=== PATIENT | female | born 1975 | race Asian ===

== ENCOUNTER 2021-08-03 21:59 | Emergency (ER) | payer OTHER ==
[~2021-08-03] VITALS: Ht 160 cm; Wt 70.0 kg
--- NOTE | 2021-08-03 22:28 | PHYS DOC ---
Past History Past Medical History: Hypertension Past Surgical History: Tonsillectomy, Other Additional Past Surgical Histo: BUNIONECTOMY Smoking: Quit Greater Than 1 Year Additional Smoking Information: Reports a 6-year history of approximately 1 pack/week tobacco when she was younger quit multiple years ago Alcohol Use: Occasionally Additional Alcohol Information: Social EtOH Drug Use: None Social History Narrative: Not currently working, lives at home General Adult EDM: Chief Complaint: MULTIPLE COMPLAINTS HPI: HPI: Patient is a 46-year-old female who presents to the emergency department via triage reporting a sudden onset of headache, chills, rigors, generalized malaise, and generalized weakness since 1500 hrs. today. Patient reports associated nausea as well as diffuse myalgias, however denies chest pain, palpitations, loss of taste of smell or taste. Patient reports taking 800 mg of Motrin at home prior to arrival. Patient reports fever at home, on arrival to triage she has a fever of 100.4 F. Patient has no known sick contacts, reports 2 doses of Moderna for COVID vaccine- last dose in October. She denies getting her flu shot yet. Her last menstrual period was reported to be last week, she is not currently on any contraceptives. Review of Systems: Review of Systems: Constitutional: Reports fever, chills, and rigors Eyes: Denies redness or eye pain HENT: Denies nasal congestion or sore throat Respiratory: Denies wheezing, respiratory distress Cardiovascular: Denies chest pain or palpitations GI: Denies abdominal pain, vomiting; reports nausea : Denies dysuria or hematuria Musculoskeletal: Denies back pain or joint pain Integument: Denies rash or skin lesions Neurologic: Reports headache; denies focal weakness or sensory changes Complete systems were reviewed and found to be within normal limits, except as documented in this note. Family History: Family History: Noncontributory Allergies: Allergies: Allergies Coded Allergies Type Severity Reaction Last Updated Verified No Known Drug Allergies 08/03/21 No Physical Exam: PE: Constitutional: Well developed, well nourished, mild distress, non-toxic HENT: Normocephalic, atraumatit Eyes: PERRL, conjunctiva normal, no discharge Neck: Normal range of motion, no tenderness, supple, no JVD, trachea midline Lungs & Thorax: No respiratory distress, normal chest wall excursion bilaterally, lung sounds clear to auscultation bilaterally, +2 peripheral pulses bilaterally, tachycardic, regular rhythm, Abdomen: Soft, no tenderness, not distended, no rigidity, no guarding, no rebound tenderness Skin: Warm, dry, no erythema, no rash Back: No tenderness, no CVA tenderness Extremities: No tenderness, ROM intact, no edema Neurologic: Alert and oriented X 3, normal motor function, normal sensory function, no focal deficits noted Psychologic: Affect normal, judgment normal Current Patient Data: Vital Signs: Vital Signs Date Time Temp Pulse Resp B/P (MAP) Pulse Ox O2 Delivery O2 Flow Rate FiO2 08/03/21 22:13 100.4 130 20 124/81 (95) 99 Room Air EKG: EKG: EKG taken at 2240 hours sinus tachycardia rate of 112 bpm. NH interval 148 ms, QRS interval 76 ms, QT/QTc 316/433 ms. T wave inversions appreciated in leads I, II, V3, V4, V5. Subtle ST segment depressions appreciated in leads V3, V4. No ectopy appreciated on this EKG. Radiology/Procedures: Radiology/Procedures: PROCEDURE: CHEST AP ONLY INDICATION: Reason: fever / Spl. Instructions: / History: COMPARISON: None. FINDINGS: Single view of chest obtained. Cardiac silhouette is unremarkable. Mild hazy opacity at the lung bases. No gross osseous destructive lesion. IMPRESSION: * Mild hazy opacity at the lung bases which could be from atelectasis with early infiltrate also in differential. Electronically signed by: Brian Mistry MD (08/04/2021 12:40 AM) DESKTOP- [id number] Heart Score: C/O Chest Pain: N/A Course & Med Decision Making: Course & Med Decision Making Pertinent Labs and Imaging studies reviewed. (See chart for details) 46-year-old female presents to the emergency department through triage with a chief complaint of sudden onset generalized malaise, fatigue, chills, rigors, and diffuse myalgias. Patient has no known sick contacts, she was vaccinated against Covid via 2 shots of Modernalast dose in October, she has not had a flu vaccine this year. Plan for Covid and flu swabs, EKG, chest x-ray, IV access, blood work, continuous cardiac monitoring, and urinalysis. Labs obtained and posted to chart. Rapid influenza and Covid negative. Chest x-ray without acute process. Symptomatic treatment provided. Patient stable for discharge with outpatient follow-up with PCP. Discussed findings and plan with patient, who acknowledges understanding and agreement. COVID-19 CRITERIA: The patient was evaluated during the global COVID-19 pandemic, and that diagnosis was suspected/considered upon their initial presentation. Their evaluation, treatment and testing was consistent with current guidelines for patients who present with complaints or symptoms that may be related to COVID-19. Sophia Disclaimer: Sophia Disclaimer: This electronic medical record was generated, in whole or in part, using a voice recognition dictation system. Departure Departure: Impression: Primary Impression: Viral syndrome Additional Impression: Fever Qualified Codes: R50.9 - Fever, unspecified Disposition: HOME / SELF CARE / HOMELESS Condition: STABLE Referrals: PCP,UNKNOWN (PCP) Patient Instructions: Fever, Adult, [id number], Viral Syndrome Additional Instructions: You have been tested for or diagnosed with COVID-19. It is an infection caused by a new type of coronavirus. COVID-19 will cause cold-like or mild flu symptoms in most. It can cause more severe symptoms like problems breathing in some. There is no treatment for COVID-19. The body will clear the infection over time. Self-care will help to ease discomfort. Steps to Take: Self-Care Rest as needed. Healthy habits may help you feel better. Steps include: Choose healthy foods including fruits and vegetables. Drink water throughout the day. Get plenty of sleep each night. If you smoke, try to quit. It may ease breathing. Avoid alcohol. Keep Others Healthy The virus can spread to others. Droplets are released every time you sneeze or cough. The droplets can get into the mouth, nose, or eyes of people near you and lead to infection. To lower the chances of spreading COVID-19 to others: Stay at home until your doctor has said it is safe to leave. If you tested positive this will mean staying isolated until both of the following are true: At least 7 days have passed since the start of illness. You are free of fever for at least 72 hours without the use of medicine. During this time: - Avoid public areas, events, or transportation. Do not return to work or school until your doctor has said it is safe to do so. - Call ahead if you need to go to a medical center. Let them know you may have COVID-19. It will help them guide you where to go. They may also ask you to wear a facemask when you come to the office. - If you call for emergency medical services, let them know you may have COVID- 19. While at home: - Try to avoid close contact with others. Stay about 6 feet away. - If possible, spend most of your time in a separate room from others. - Use a face mask if you will be in close contact with others such as sharing a room or vehicle. - Have someone wipe down common surfaces in the home. Use household financial reporting specialist every day on areas like doorknobs, counters, or sinks. - Cough or sneeze into a tissue. Throw the tissue away right after use. If a tissue is not available, cough or sneeze into your elbow. - Wash your hands often. Wash them after sneezing or coughing. Use soap and water and wash for at least 20 seconds. Alcohol based hand fur cleaner can be used if soap and water is not available. - Do not prepare food for others. Avoid sharing personal items like forks, spoons, or toothbrushes. - Avoid close contact with pets while you are sick. There is no evidence of the virus passing to pets. This is a safety step until more is known about this virus. Isolation can be frustrating. Social interaction can help. Keep in touch with friends and family through phone and tech options. You can still interact with others in your home, just keep a safe distance of about 6 feet. Follow-up: Your doctors office will check in with you to see if there are any changes in your health. You may be asked to keep track of symptoms to share with them. They will also let you know when you are clear to be in public again. Problems to Look Out For: Contact your doctor if your recovery is not going as you expect. Get emergency care if you have problems such as: - Trouble breathing - Nonstop chest pain or pressure - Changes in awareness, confusion, or problems waking - Lips or face have bluish color - Worsening of symptoms If you think you have an emergency, call for emergency medical services right away. As taken from [facility] COVID-19 Assessment COVID-19 Patient Risks: Age 65 or older: No Sign of co-morbidity: No Exp to person + for COVID: No Exp to PUI: No Travel from affected area: No Lower respiratory symptoms: Yes Fever: Yes Other: Yes PPE Use: Full PPE with N95 mask or PAPR: Yes NEVIN AYON DO Aug 03, 2021 22:28
[2021-08-03] MEDS ORDERED: ACETAMINOPHEN 500 MG TABLET PO ONE (23:00)
[2021-08-03] MEDS ORDERED: IV NORMAL SALINE 1,000ML 1,000 ML IV ONE (23:00)
[2021-08-03 23:10] VITALS: BP 120/71
--- NOTE | 2021-08-03 23:29 | EKG ---
[address] [id number] Test Date: 2021-08-03 Test Time: 22:40:42 Pat Name: MILTON BACA Department: Room: Gender: F Claims Specialist: : [id number] Requested By: NEVIN AYON Order Number: [id number] Reading MD: Kurt Og Measurements Intervals Marvell Rate: 112 P: 46 NC: 148 QRS: 71 QRSD: 76 T: 72 QT: 316 QTc: 433 Interpretive Statements SINUS TACHYCARDIA T ABNORMALITY IN ANTERIOR LEADS ABNORMAL ECG RI6.02 No previous ECG available for comparison Electronically Signed On 08-04-2021 12:32:44 [employer] by Kurt Og
[2021-08-03 23:55] LABS: BASO % 0 % (0-3); EOS % 0 % (0-3); HEMATOCRIT 40.6 % (36.0-47.0); HEMOGLOBIN 13.9 g/dL (12.0-15.5); LYMPH # 0.6 x10^3/uL (1.0-4.8); LYMPH % 4 % (24-48); MEAN CORPUSCULAR HEMOGLOBIN 30 pg (25-35); MEAN CORPUSCULAR HGB CONC 34 g/dL (31-37); MEAN CORPUSCULAR VOLUME 87 fL (79-100); MONO # 0.5 x10^3/uL (0.0-1.1); MONO % 4 % (0-9); NEUT # 12.6 x10^3uL (1.8-7.7); NEUT % 92 % (31-73); PLATELET COUNT 251 x10^3/uL (140-400); RED BLOOD COUNT 4.66 x10^6/uL (3.50-5.40); RED CELL DISTRIBUTION WIDTH 12.4 % (11.5-14.5); WHITE BLOOD COUNT 13.7 x10^3/uL (4.0-11.0)
[2021-08-04 00:15] LABS: ANION GAP 12 (6-14); BLOOD UREA NITROGEN 13 mg/dL (7-20); BUN/CREATININE RATIO 16 (6-20); CALCIUM 8.7 mg/dL (8.5-10.1); CARBON DIOXIDE 28 mmol/L (21-32); CHLORIDE 97 mmol/L (98-107); CREATININE 0.8 mg/dL (0.6-1.0); GFR 77.6; GLUCOSE 124 mg/dL (70-99); POTASSIUM 3.6 mmol/L (3.5-5.1); SODIUM 137 mmol/L (136-145)
[2021-08-04 00:29] LABS: ALBUMIN/GLOBULIN RATIO 1.3 (1.0-1.7); ALK PHOS 53 U/L (46-116); ALT (SGPT) 44 U/L (14-59); AST (SGOT) 29 U/L (15-37); MAGNESIUM 2.2 mg/dL (1.8-2.4); TOTAL BILIRUBIN 0.7 mg/dL (0.2-1.0); TOTAL PROTEIN 7.1 g/dL (6.4-8.2)
[2021-08-04 00:29] LABS: INFLUENZA A PATIENT NEGATIVE (NEGATIVE); INFLUENZA B PATIENT NEGATIVE (NEGATIVE)
--- NOTE | 2021-08-04 00:42 | RAD ---
INDICATION: Reason: fever / Spl. Instructions: / History: COMPARISON: None. FINDINGS: Single view of chest obtained. Cardiac silhouette is unremarkable. Mild hazy opacity at the lung bases. No gross osseous destructive lesion. IMPRESSION: * Mild hazy opacity at the lung bases which could be from atelectasis with early infiltrate also in differential. Electronically signed by: Brian Mistry MD (08/04/2021 12:40 AM) [id number]
[2021-08-04 01:56] LABS: BACTERIA,URINE 0 /HPF (0-FEW); BILIRUBIN,URINE NEG (NEG); CLARITY,URINE CLEAR; COLOR,URINE YELLOW; GLUCOSE,URINE NEG (NEG); NITRITE,URINE NEG (NEG); RBC,URINE 0 /HPF (0-2); SQUAMOUS EPITHELIAL CELL,UR FEW /LPF; UROBILINOGEN,URINE 0.2 mg/dL (0.2 mg/dL); WBC,URINE 0 /HPF (0-4)
== END 2021-08-04 02:21 | disposition home or self-care (01) ==
LOC: ER 21:59
DX: B34.9 Viral infection, unspecified (principal); I10 Essential (primary) hypertension; Z87.891 Personal history of nicotine dependence; Z20.822 Contact with and (suspected) exposure to COVID-19
CPT/HCPCS: 71045; 80053; 81001; 81025; 82553; 83605; 83735; 84484; 85025; 87426; 87804; 93005; 96360; 96361; 99285; C9803; J7030; U0003